=== PATIENT | male | born 1960 | race Hispanic/Latino ===

== ENCOUNTER 2023-06-24 19:59 | Emergency (ER) | payer OTHER ==
[~2023-06-24] VITALS: Ht 180.3 cm; Wt 90.7 kg
[2023-06-24 20:49] LABS: BASOPHILS # (AUTO) 0.04 K/uL (0.00-0.20); BASOPHILS % (AUTO) 0.4 % (0.0-5.0); EOSINOPHILS # (AUTO) 0.16 K/uL (0.00-0.70); EOSINOPHILS % (AUTO) 1.5 % (0.0-8.0); HEMATOCRIT 41.4 % (42-54); IMMATURE GRANULOCYTE ABSOLUTE 0.04 K/uL (0-1); LYMPHOCYTES # (AUTO) 1.6 K/uL (1.0-4.8); LYMPHOCYTES % (AUTO) 14.5 % (21.0-51.0); MEAN CORPUSCULAR HEMOGLOBIN 30.2 pg (27.0-33.0); MONOCYTES # (AUTO) 0.9 K/uL (0.1-1.0); MONOCYTES % (AUTO) 8.5 % (3.0-13.0); NEUTROPHILS # (AUTO) 8.1 K/uL (1.8-7.7); NEUTROPHILS % (AUTO) 74.7 % (40.0-77.0); PLATELET COUNT (AUTO) 213 K/uL (130-400); RED BLOOD CELL COUNT(AUTO) 4.93 MIL/uL (4.50-6.20); RED CELL DISTRIBUTION WIDTH 11.7 % (11.0-15.5); WHITE BLOOD COUNT (AUTO) 10.8 K/uL (4.8-10.8)
[2023-06-24] MEDS ORDERED: ATOR40TA71 PO (20:50)
[2023-06-24] MEDS ORDERED: RISP0.5T66 PO (20:50)
[2023-06-24] MEDS ORDERED: QUET25TA36 PO (20:51)
[2023-06-24] MEDS ORDERED: FLUO40CA49 PO (20:51)
[2023-06-24] MEDS ORDERED: LISI10TA24 PO (20:52)
[2023-06-24 21:07] VITALS: BP 121/82; PULSE 78; RESP 18; O2SAT 98
[2023-06-24 21:08] LABS: SARS-CoV-2, RNA, NAAT NEGATIVE SARS CoV-2 (NEGATIVE)
[2023-06-24 21:08] LABS: ALBUMIN 3.5 g/dL (3.5-5.0); BILIRUBIN,TOTAL 0.8 mg/dL (0.2-1.0); CREATININE 1.1 mg/dL (0.5-1.5); POTASSIUM 4.3 mmol/L (3.5-5.1); TOTAL PROTEIN, SERUM 7.6 g/dL (6.0-8.3)
[2023-06-24] MEDS ORDERED: INSULIN HUMULIN R 100 UNIT/ML 3ML ONE (21:14)
[2023-06-24] MEDS ORDERED: INSULIN HUMULIN R 100 UNIT/ML 3ML IV ONE (21:30)
[2023-06-24 21:34] LABS: APPEARANCE,URINE CLEAR (CLEAR); BILIRUBIN,URINE NEGATIVE (NEGATIVE); COLOR,URINE COLORLESS (YELLOW); GLUCOSE, URINE (UA) >=1000 mg/dL (NEGATIVE); KETONES,URINE 5 mg/dL (NEGATIVE); LEUKOCYTE ESTERASE ,URINE NEGATIVE Leu/uL (NEGATIVE); NITRATE,URINE NEGATIVE (NEGATIVE); OCCULT BLOOD,URINE NEGATIVE (NEGATIVE); PROTEIN,URINE NEGATIVE (NEGATIVE); UROBILINOGEN,URINE 0.2 mg/dL (0.2-1.0)
[2023-06-24 21:35] LABS: ADD UA MICROSCOPIC YES
[2023-06-24 21:38] LABS: RBC,URINE 0-1 /HPF (0-1)
[2023-06-24] MEDS ORDERED: ZINC57OI4 TP (22:12)
[2023-06-24] MEDS ORDERED: VITS42.53 TP (22:12)
[2023-06-24] MEDS ORDERED: CLOT15CR23 TP (22:12)
[2023-06-24] MEDS ORDERED: CEPH500B PO (22:12)
[2023-06-25] MEDS ORDERED: INSULIN HUMULIN R 100 UNIT/ML 3ML IV SCH (07:30)
== END 2023-06-24 22:28 | disposition home or self-care (01) ==
LOC: EDH 19:59
DX: L25.9 Unspecified contact dermatitis, unspecified cause (principal); E11.65 Type 2 diabetes mellitus with hyperglycemia; I10 Essential (primary) hypertension; F20.9 Schizophrenia, unspecified; F31.9 Bipolar disorder, unspecified; Z20.822 Contact with and (suspected) exposure to COVID-19
CPT/HCPCS: 99284; 96374; 87635; 80053; 85025; 87040 ×2; 83605; 81001; 36415; J1815; C9803